=== PATIENT | female | born 1965 | race Caucasian/White ===

== ENCOUNTER 2019-03-06 20:51 | Emergency (ER) | payer MEDICARE ==
[~2019-03-06] VITALS: Ht 160 cm; Wt 61.2 kg
[~2019-03-06 20:51] MED LIST: ALPR1TAB2 PO; CYCL1TAB18 PO; LEV100T PO; QUET50TA PO; VENL75CA3 PO; ZOLP10TA6 PO
[2019-03-06 23:09] LABS: Urine Bacteria NONE SEEN /hpf (None Seen); Urine Blood Negative /uL (Negative); Urine Mucus FEW (None Seen); Urine Specific Gravity 1.026 (1.001-1.035); Urine WBC 3 /hpf (0 - 5)
[2019-03-06 23:11] LABS: Basophils # (auto) 0 uL; Basophils % (auto) 0.1 % (0.0-2.0); Eosinophils # (auto) 0.1 uL; Eosinophils % (auto) 0.6 % (0.0-7.0); Hematocrit 46.8 % (36.0-46.0); Lymphocytes # (auto) 0.3 uL; Lymphocytes % (auto) 2.9 % (10.0-50.0); Mean Corpuscular Hemoglobin 31.2 pg (28.0-32.0); Mean Corpuscular Hgb Conc. 34.2 g/dL (32.0-36.0); Mean Corpuscular Volume 91.2 fL (80.0-100.0); Monocytes # (auto) 0.4 uL; Monocytes % (auto) 4.1 % (0.0-12.0); Neutrophils # (auto) 8.4 uL; Neutrophils % (auto) 92.3 % (37.0-80.0); Platelet Count (auto) 251 10^3/uL (140-450); Red Blood Cells 5.14 10^6/uL (4.0-5.20); Red Cell Distribution Width 13.5 % (11.8-14.3); White Blood Cell 9.1 10^3/uL (4.4-10.8)
[2019-03-06] MEDS ORDERED: MORPHINE SULFATE 4 MG/ML SYR/VIAL IV ONE (23:15)
[2019-03-06] MEDS ORDERED: ONDANSETRON HCL 4 MG/2 ML VIAL IV ONE (23:15)
[2019-03-06 23:17] LABS: Potassium 4.4 mmol/L (3.5-5.1)
[2019-03-06 23:21] LABS: Albumin 4.3 g/dL (3.4-5.0); BUN/Creatinine Ratio 22.8; Calcium 9.5 mg/dL (8.5-10.1)
[2019-03-06 23:27] LABS: Bilirubin, Total 0.3 mg/dL (0.2-1.0); Total Protein 7.8 g/dL (6.4-8.2)
[2019-03-07] MEDS ORDERED: SODIUM CHLORIDE 0.9% 1,000 ML IV ONE
[2019-03-07] MEDS ORDERED: ACETAMINOPHEN 325 MG TAB PO ONE (00:30)
[2019-03-07 02:00] VITALS: BP 120/72
[2019-03-07] MEDS ORDERED: ALPRAZolam 0.5 MG TAB PO ONE (02:45)
== END 2019-03-07 03:29 | disposition home or self-care (01) ==
LOC: ER 20:55
DX: N20.0 Calculus of kidney (principal); R11.2 Nausea with vomiting, unspecified; K21.9 Gastro-esophageal reflux disease without esophagitis; Z87.442 Personal history of urinary calculi; Z88.2 Allergy status to sulfonamides; Z79.899 Other long term (current) drug therapy
CPT/HCPCS: 36415; 74176; 80053; 81001; 83690; 85025; 96361; 96374; 96375

== ENCOUNTER 2023-07-18 21:10 | Emergency (ER) | payer MEDICARE ==
[~2023-07-18] VITALS: Ht 160 cm; Wt 60.9 kg
[~2023-07-18 21:10] MED LIST changes: +CYCL-839 PO; -CYCL1TAB18 PO
[2023-07-18 22:26] LABS: Basophils # (auto) 0.1 10 ^3/uL (0-0.2); Basophils % (auto) 1.2 % (0.0-2.0); Eosinophils # (auto) 0.2 10 ^3/uL (0-0.8); Eosinophils % (auto) 3.1 % (0.0-7.0); Hematocrit 41.3 % (36.0-46.0); Hemoglobin 13.8 g/dL (12.2-16.2); Lymphocytes # (auto) 1.2 10 ^3/uL (0.4-5.4); Mean Corpuscular Hemoglobin 31.1 pg (28.0-32.0); Mean Corpuscular Hgb Conc. 33.4 g/dL (32.0-36.0); Mean Corpuscular Volume 93.1 fL (80.0-100.0); Monocytes # (auto) 0.7 10 ^3/uL (0-1.3); Monocytes % (auto) 14.5 % (0.0-12.0); Neutrophils # (auto) 2.9 10 ^3/uL (1.6-8.6); Neutrophils % (auto) 57.2 % (37.0-80.0); Red Blood Cells 4.44 10^6/uL (4.0-5.20); Red Cell Distribution Width 13.5 % (11.8-14.3)
[2023-07-18 22:35] LABS: Chloride 108 mmol/L (98-107); Potassium 4.2 mmol/L (3.5-5.1); Sodium 140 mmol/L (136-145)
[2023-07-18 22:36] LABS: Anion Gap 4 (5-15); Carbon Dioxide 28 mmol/L (20-30)
[2023-07-18 22:37] LABS: Calcium 10.3 mg/dL (8.7-10.4)
[2023-07-18 22:41] LABS: BUN/Creatinine Ratio 19.2 (10.0-20.0); Blood Urea Nitrogen 19 mg/dL (9-23); Glucose 93 mg/dL (74-106)
[2023-07-18 22:42] LABS: Lipase 40 U/L (12-53)
[2023-07-18] MEDS ORDERED: METO-281 PO (23:35)
[2023-07-19 00:25] VITALS: BP 144/56; PULSE 58; RESP 17; O2SAT 99
[2023-07-19] MEDS: METOCLOPRAMIDE HCL 5MG/ml INJ 2ml VIAL IM ONE (00:31)
== END 2023-07-19 00:34 | disposition home or self-care (01) ==
LOC: ER 21:10
DX: R10.13 Epigastric pain (principal); R11.2 Nausea with vomiting, unspecified; Z98.51 Tubal ligation status; K21.9 Gastro-esophageal reflux disease without esophagitis; Z87.442 Personal history of urinary calculi; Z88.2 Allergy status to sulfonamides
CPT/HCPCS: 36415; 80048; 83690; 85025; 96372; 99283; J2765

== ENCOUNTER 2023-10-08 12:48 | Emergency (ER) | payer MEDICARE ==
[~2023-10-08] VITALS: Ht 160 cm; Wt 61.3 kg
[~2023-10-08 12:48] MED LIST changes: +METO-281 PO
[2023-10-08] MEDS: KETOROLAC TROMETH 60MG/2ML VIAL IM ONE (14:55)
[2023-10-08] MEDS: ONDANSETRON ODT 4 MG TAB PO ONE (14:55)
[2023-10-08 15:00] VITALS: BP 139/84; PULSE 69; RESP 18; TEMP 98.1; O2SAT 98
[2023-10-08] MEDS ORDERED: ZOFR4T PO (15:41)
[2023-10-08] MEDS ORDERED: SUMA50TA2 PO (15:41)
== END 2023-10-08 16:07 | disposition home or self-care (01) ==
LOC: ER 12:48
DX: G43.909 Migraine, unspecified, not intractable, without status migrainosus (principal); F41.9 Anxiety disorder, unspecified; K21.9 Gastro-esophageal reflux disease without esophagitis; E07.9 Disorder of thyroid, unspecified; Z87.442 Personal history of urinary calculi; Z98.51 Tubal ligation status
CPT/HCPCS: 70450; 96372; 99285; J1885; Q0162

== ENCOUNTER 2024-01-27 14:39 | Inpatient (IN) | payer MEDICARE ==
[~2024-01-27] VITALS: Ht 160 cm; Wt 66.0 kg
[~2024-01-27 14:39] MED LIST changes: -LEV100T PO; +LEVO-849 PO; +SUMA50TA2 PO; +ZOFR4T PO
[2024-01-27 15:00] LABS: Basophils # (auto) 0 10 ^3/uL (0-0.2); Basophils % (auto) 0.9 % (0.0-2.0); Eosinophils # (auto) 0 10 ^3/uL (0-0.8); Eosinophils % (auto) 0.5 % (0.0-7.0); Hematocrit 44.1 % (36.0-46.0); Hemoglobin 15.4 g/dL (12.2-16.2); Lymphocytes % (auto) 17.7 % (10.0-50.0); Mean Corpuscular Hemoglobin 32.5 pg (28.0-32.0); Mean Corpuscular Hgb Conc. 34.8 g/dL (32.0-36.0); Mean Corpuscular Volume 93.4 fL (80.0-100.0); Monocytes # (auto) 0.6 10 ^3/uL (0-1.3); Monocytes % (auto) 10.5 % (0.0-12.0); Neutrophils # (auto) 3.8 10 ^3/uL (1.6-8.6); Neutrophils % (auto) 70.4 % (37.0-80.0); Nucleated Red Blood Cells % 0.1 %; Platelet Count (auto) 309 10^3/uL (140-450); Red Blood Cells 4.72 10^6/uL (4.0-5.20); Red Cell Distribution Width 12.8 % (11.8-14.3); White Blood Cell 5.4 10^3/uL (4.4-10.8)
--- NOTE | 2024-01-27 15:02 | ED.PDOC ---
HPI Comments 58Y F with PMHx CVA, MS, Anxiety, and Depression presents to ED for chief complaint chest pain x4hrs. Chest pain is left-sided, radiates to the back, and is described as stabbing. Pt states she was driving home when she began to feel unwell and then upon arriving home, felt SOB. Chest pain improves when leaning forward and worsens when standing upright. Allergies include sulfa abx. Chief Complaint: Chest Pain Time Seen by MD: 14:45 Primary Care Provider: FRANCI Reviewed Notes: Medications, Allergies Allergies: Coded Allergies: Sulfa Antibiotics (Verified Allergy, Unknown, HIVES, 02/27/19) Home Meds Active Scripts Ondansetron Odt 4MG Tab (ZOFRAN PO) 4 Mg Tb, 4 MG PO BID, #14 TAB ODT TAB-DISSOLVE IN MOUTH, THEN SWALLOW Prov:DAVID VILLARREAL 10/08/23 Sumatriptan Succinate (Imitrex) 50 Mg Tab, 1 TAB PO BID, #20 TAB Prov:DAVID VILLARREAL 10/08/23 Metoclopramide Hcl (Reglan) 10 Mg Tab, 10 MG PO Q6HP PRN, #30 TAB Prov:JAYNA KINCAID DO 07/18/23 Reported Medications Cyclobenzaprine Hcl (Cyclobenzaprine Hcl) 10 Mg Tab, 10 MG PO Q8HR for 30 Days, MG 02/27/19 Alprazolam (Xanax) 1 Mg Tab, 1 MG PO Q6HR, TAB 02/27/19 Zolpidem Tartrate (Zolpidem Tartrate) 10 Mg Tab, 1 TAB PO QPM, #30 TAB 2 Refills 02/27/19 Venlafaxine Hydrochloride (Effexor Xr) 75 Mg Cap, 1 CAP PO DAILY, #30 CAP 1 Refill 02/27/19 Quetiapine Fumerate (Seroquel) 50 Mg Tab, 50 MG PO BID, TAB 02/27/19 Levothyroxine Sodium (SYNTHROID TABLET) 100 Mcg Tb, 1 TAB PO DAILY@BREAKFAST, #30 TAB 5 Refills 02/27/19 Information Source: Patient Mode of Arrival: Ambulatory Severity: Severe Timing: Hours Duration: Since onset Location: Chest (L) Radiation: Back Quality: Stabbing Onset: At Rest Cardiac Risk Factors: None PE Risk Factors: None History of: None Modifying Factors: Movement, Position, Position Change Associated Signs and Symptoms: SOB, Back Pain Past Medical History PAST MEDICAL HISTORY: Anxiety, CVA, Depression, GERD, Kidney Stones, Thyroid Past Medical History (Other): MS Surgical History: BTL SOUND ENGINEER History: No Pertinent SOUND ENGINEER History Family History Family History: Reviewed,noncontributory to illness, Family hx of heart moisés Social History Smoker: Non-Smoker Alcohol: Denies ETOH Use Drugs: Denies Drug Use Lives In: Home Constitutional: denies: chills, diaphoresis, fatigue, fever, malaise, sweats, weakness, others EENTM: denies: blurred vision, double vision, ear bleeding, ear discharge, ear drainage, ear pain, ear ringing, eye pain, eye redness, hearing loss, mouth pain, mouth swelling, nasal discharge, nose bleeding, nose congestion, nose pain, photophobia, tearing, throat pain, throat swelling, voice changes, others Respiratory: reports: shortness of breath; denies: cough, hemoptysis, orthopnea, SOB at rest, SOB with excertion, stridor, wheezing, others Cardiovascular: reports: chest pain; denies: dizzy spells, diaphoresis, Dyspnea on exertion, edema, irregular heart beat, left arm pain, lightheadedness, palpitations, PND, syncope, others Gastrointestinal: denies: abdomen distended, abdominal pain, blood streaked bowels, constipated, diarrhea, dysphagia, difficulty swallowing, hematemesis, melena, nausea, poor appetite, poor fluid intake, rectal bleeding, rectal pain, vomiting, others Genitourinary: denies: abnormal vagina bleeding, burning, dyspareunia, dysuria, flank pain, frequency, hematuria, incontinence, pain, , vagina discharge, urgency, others Neurological: denies: dizziness, fainting, headache, left sided numbness, left sided weakness, numbness, paresthesia, pre-existing deficit, right sided numb ness, right sided weakness, seizure, speech problems, tingling, tremors, weakness, others Musculoskeletal: denies: back pain, gout, joint pain, joint swelling, muscle pain, muscle stiffness, neck pain, others Integumetry: denies: bruises, change in color, change in hair/nails, dryness, laceration, lesions, lumps, rash, wounds, others Allergic/Immunocompromised: denies: Difficulty Healing, Frequent Infections, Hives, Itching, others Hematologic/Lymphatic: denies: anemia, blood clots, easy bleeding, easy bruising, swollen glands, others Endocrine: denies: excessive hunger, excessive sweating, excessive thirst, excessive urination, flushing, intolerance to cold, intolerance to heat, unexplained weight gain, unexplained weight loss, others Psychiatric: denies: anxiety, bipolar disorder, depression, hopeless, panic disorder, schizophrenia, sleepless, suicidal, others All Other Systems: Reviewed and Negative Physical Exam General Appearance: Moderate Distress, Severe Distress HEENT: Normal ENT Inspection, Pharynx Normal, TMs Normal Neck: Full Range of Motion, Non-Tender, Normal, Normal Inspection Respiratory: Chest Non-Tender, Lungs Clear, No Accessory Muscle Use, No Respiratory Distress, Normal Breath Sounds Cardiovascular: No Edema, No JVD, No Murmur, No Gallop, Normal Peripheral Pulses, Regular Rate/Rhythm Breast Exam: Deferred Gastrointestinal: No Organomegaly, Non Tender, No Pulsatile Mass, Normal Bowel Sounds, Soft Genitalia: Deferred Pelvic: Deferred Rectal: Deferred Extremities: No calf tenderness, Normal capillary refill, Normal inspection, Normal range of motion, Non-tender, No pedal edema Musculoskeletal : Apperance: Normal Neurologic: Alert, school childcare attendant II-XII nml as Tested, No Motor Deficits, Normal Affect, Normal Mood, No Sensory Deficits Cerebellar Function: NOT DONE Reflexes: NOT DONE Skin: Dry, Normal Color, Warm Peripheral Pulses: 3+ Radial (R), 3+ Radial (L) Lymphatic: No Adenopathy Was a procedure done? Was a procedure done?: No CP Differential Dx Differential Diagnosis: A-fib, A-Flutter, Angina, Anxiety / Panic Attack, Atrial Dysrhythmia, Electrolyte Disorder X-Ray, Labs, Meds, VS Vital Signs Date Time Temp Pulse Resp B/P (MAP) Pulse Ox O2 Delivery O2 Flow Rate FiO2 01/27/24 16:34 116/57 01/27/24 15:34 128/70 01/27/24 15:25 71 19 97 Room Air* 0 21 01/27/24 15:24 97.8 79 19 128/70 (89) 97 97.8 01/27/24 14:51 96 01/27/24 14:42 97.8 85 17 133/80 (97) 97 Lab Test 01/27/24 15:51 01/27/24 14:45 Range/Units Troponin I High Sensitivity 4 4 </=34 ng/L White Blood Count 5.4 4.4-10.8 10^3/uL Red Blood Count 4.72 4.0-5.20 10^6/uL Hemoglobin 15.4 12.2-16.2 g/dL Hematocrit 44.1 36.0-46.0 % Mean Corpuscular Volume 93.4 80.0-100.0 fL Mean Corpuscular Hemoglobin 32.5 H 28.0-32.0 pg Mean Corpuscular Hemoglobin Concent 34.8 32.0-36.0 g/dL Red Cell Distribution Width 12.8 11.8-14.3 % Platelet Count 309 140-450 10^3/uL Mean Platelet Volume 8.6 6.9-10.8 fL Neutrophils (%) (Auto) 70.4 37.0-80.0 % Lymphocytes (%) (Auto) 17.7 10.0-50.0 % Monocytes (%) (Auto) 10.5 0.0-12.0 % Eosinophils (%) (Auto) 0.5 0.0-7.0 % Basophils (%) (Auto) 0.9 0.0-2.0 % Neutrophils # (Auto) 3.8 1.6-8.6 10 ^3/uL Lymphocytes # (Auto) 1.0 0.4-5.4 10 ^3/uL Monocytes # (Auto) 0.6 0-1.3 10 ^3/uL Eosinophils # (Auto) 0 0-0.8 10 ^3/uL Basophils # (Auto) 0 0-0.2 10 ^3/uL Nucleated Red Blood Cells 0.1 % Sodium Level 140 136-145 mmol/L Potassium Level 4.2 3.5-5.1 mmol/L Chloride Level 105 98-107 mmol/L Carbon Dioxide Level 27 20-31 mmol/L Anion Gap 8 5-15 Blood Urea Nitrogen 18 9-23 mg/dL Creatinine 1.00 0.550-1.02 mg/dL Glomerular Filtration Rate Calc 64 >90 mL/min BUN/Creatinine Ratio 18.0 10.0-20.0 Serum Glucose 89 74-106 mg/dL Calcium Level 10.6 H 8.7-10.4 mg/dL Total Bilirubin 0.5 0.2-1.0 mg/dL Aspartate Amino Transferase (AST) 21 13-40 U/L Alanine Aminotransferase (ALT) 21 7-40 U/L Alkaline Phosphatase 105 46-116 U/L Total Protein 7.1 5.7-8.2 g/dL Albumin 4.9 H 3.2-4.8 g/dL Current Medications Medications (Trade) Dose Ordered Sig/Sharlene Route Start Time Stop Time Status Last Admin Aspirin 325 mg ONCE ONCE PO 01/27/24 15:30 01/27/24 15:31 DC 01/27/24 15:34 Nitroglycerin (Ntrostat Sublingual) 0.4 mg ONCE ONCE SL 01/27/24 15:30 01/27/24 15:31 DC 01/27/24 15:34 [place] [id number] Ph: [phone] DIAGNOSTIC IMAGING Diagnostic Imaging Report : [id number] Signed PATIENT: ROSANGELA SEYMOUR ACCT: [id number] UNIT: [id number] : 1965 LOC: ER ROOM / BED: / AGE / SEX: 58 / F ADM STATUS: REG ER SERVICE [id number] ORDERING PHYSICIAN: HERNAN RESENDEZ MD PROCEDURE(s): CXRP - CHEST PORTABLE REASON: CHEST PAIN ORDER NUMBER(s): [id number], ACCESSION NUMBER(s): [id number] CHEST RADIOGRAPH Indication:CHEST PAIN Technique: Single frontal view of the chest was obtained Comparison: None FINDINGS: Lines and Tubes: None Lungs: No focal consolidation. Pleura: No effusion. No pneumothorax. Cardiomediastinal contours: Unremarkable Bones: No acute osseous abnormality. IMPRESSION: No acute cardiopulmonary disease. ATED BY: JIMMY VILLAGOMEZ MD DICTATED DATE/TIME: 01/27/241523 SIGNED BY: JIMMY VILLAGOMEZ MD SIGNED DATE/TIME: 01/27/24 152 CC: Patient alert. Complaining of chest pain. EKG reviewed does not show any acute process. Vitals stable. Answering all questions. Was given aspirin. Was given nitro. Continues to have chest pain. Possibly will need echo. Explained to the patient. Continue cardiac monitoring. Time of 1ST Reevaluation: 15:15 Reevaluation 1ST: Unchanged Patient Education/Counseling: Diagnosis, Treatment Family Education/Counseling: No Family Present Departure 1 Departure Time of Disposition: 15:28 Impression: Primary Impression: Chest pain of unknown etiology Disposition: ADMITTED INPATIENT Admit to: Med Surg Condition: Guarded Critical Care Note Critical Care Time?: Yes (45 min-critical care time only) Stability Stability form required: No Heart Score Heart Score: Heart Score Response (Comments) Value History Slightly Suspicious 0 EKG Normal 0 Age 45-64 1 Risk Factors 1 or 2 risk factors 1 Troponin Normal limit 0 Total 2 I personally scribed for HRENAN RESENDEZ MD ([email or web address]) on 01/27/24 at 15:02. Electronically submitted by Joy Bond ([email or web address]). I personally scribed for HERNAN RESENDEZ MD ([email or web address]) on 01/27/24 at 16:47. Electronically submitted by Joy Bond ([email or web address]). HERNAN RESENDEZ MD Jan 27, 2024 15:02
[2024-01-27 15:25] VITALS: PULSE 71; RESP 19; O2SAT 97
--- NOTE | 2024-01-27 15:26 | DVH ---
CHEST RADIOGRAPH Indication:CHEST PAIN Technique: Single frontal view of the chest was obtained Comparison: None FINDINGS: Lines and Tubes: None Lungs: No focal consolidation. Pleura: No effusion. No pneumothorax. Cardiomediastinal contours: Unremarkable Bones: No acute osseous abnormality. IMPRESSION: No acute cardiopulmonary disease.
[2024-01-27] MEDS: NITROGLYCERIN 0.4 MG SL TAB SL ONE ×2 (15:34→17:13)
[2024-01-27] MEDS: ASPirin 325 MG TAB PO ONE (15:34)
[2024-01-27 15:36] LABS: Alanine Aminotransferase 21 U/L (7-40); Albumin 4.9 g/dL (3.2-4.8); Alkaline Phosphatase 105 U/L (46-116); Anion Gap 8 (5-15); Aspartate Aminotransferase 21 U/L (13-40); Bilirubin, Total 0.5 mg/dL (0.2-1.0); Blood Urea Nitrogen 18 mg/dL (9-23); Calcium 10.6 mg/dL (8.7-10.4); Carbon Dioxide 27 mmol/L (20-31); Chloride 105 mmol/L (98-107); Glucose 89 mg/dL (74-106); Potassium 4.2 mmol/L (3.5-5.1); Sodium 140 mmol/L (136-145); Total Protein 7.1 g/dL (5.7-8.2)
[2024-01-27] MEDS: ONDANSETRON HCL 4 MG/2 ML VIAL IV ONE (17:12)
[2024-01-27] MEDS: MORPHINE SULFATE 4 MG/ML SYR/VIAL IV ONE (17:12)
[2024-01-27] MEDS ORDERED: NITROGLYCERIN 0.4 MG SL TAB SL PRN (20:45)
[2024-01-27] MEDS ORDERED: ACETAMINOPHEN 325 MG TAB PO PRN (20:45)
[2024-01-27] MEDS ORDERED: MORPHINE SULFATE INJ 2 MG/ml SYRG IV PRN (20:45)
[2024-01-27] MEDS: SODIUM CHLOR 0.9% PF (SALINE LOCK) 10ML VIAL/SYR IV SCH (22:05)
--- NOTE | 2024-01-27 22:39 | DVHHPRES ---
History of Present Illness Resident Creating Document: RED AUGUSTE RESIDENT History of Present Illness This is a 58-year-old female with past medical history of hypothyroidism, leukopenia, multiple sclerosis on infusion, osteoporosis, peripheral neuropathy, CVA presented to the ED with a chief complaint of chest pain since morning prior to this admission. According to the patient the left-sided chest pain which was sharp ,stabbing pain 12/10 ,radiate to the back aggravated by standing upright and relieved by leaning forward and associated with shortness of breath, dizziness and diaphoresis. The patient also mentioned dry cough and epigastric pain for last 1 week. She was diagnosed with multiple sclerosis in 2010 and she was on infusion once in every 6 months. Initial EKG and troponins are unremarkable. Past Medical History Hypothyroidism, leukopenia, multiple sclerosis on infusion, osteoporosis, jory pheral neuropathy, CVA Past Surgical History Partial hysterectomy with oophorectomy and bilateral breast implant Family History None Smoke: No ALCOHOL: none Drugs: None Past Social History Lives with her boyfriend Review of Systems Constitutional: No: Fever, Chills, Sweats, Weakness, Malaise, Other Eyes: No: Pain, Vision change, Conjunctivae inflammation, Eyelid inflammation, Other, Redness ENT: No: Ear pain, Ear discharge, Nose pain, Nose discharge, Nose congestion, Mouth pain, Mouth swelling, Throat pain, Throat swelling, Other Respiratory: Cough, Dry, Shortness of breath; No: SOB with excertion, Wheezing, Hemoptysis, Pleuritic Pain, Sputum, Wheezing, Other Cardiovascular: Chest Pain; No: Palpitations, Orthopnea, Paroxysmal Noc. Dyspnea, Edema, Lt Headedness, Other Gastrointestinal: No: Nausea, Vomiting, Abdominal Pain, Diarrhea, Constipation, Melena, Hematochezia, Other Genitourinary: No Dysuria, No Frequency, No Incontinence, No Hematuria, No Retention, No Other Musculoskeletal: No: other, neck pain, shoulder pain, arm pain, back pain, hand pain, leg pain, foot pain Skin: No: Rash, Lesions, Jaundice, Bruising, Other Neurological: No: Weakness, Numbness, Incoordination, Change in speech, Confusion, Seizures, Other Allergies: Coded Allergies: Sulfa Antibiotics (Verified Allergy, Unknown, HIVES, 02/27/19) Medications Current Medications Medications Dose Ordered Sig/Sharlene Route Start Time Stop Time Status Last Admin Dose Admin Sodium Chloride 10 ml Q8HR IV 01/27/24 22:00 01/27/24 22:05 10 ML Acetaminophen 325 mg Q4HP PRN PO 01/27/24 20:45 Acetaminophen/ Hydrocodone Bitart 1 tab Q4HP PRN PO 01/27/24 20:45 Ondansetron HCl 4 mg Q4HP PRN IV 01/27/24 20:45 Nitroglycerin 0.4 mg Q5MINP PRN SL 01/27/24 20:45 Morphine Sulfate 2 mg Q30M PRN IV 01/27/24 20:45 Sodium Chloride 1,000 ml @ 75 mls/hr [id number] IV 01/27/24 22:30 Exam Vital Signs Vital Signs Date Time Temp Pulse Resp B/P (MAP) Pulse Ox O2 Delivery O2 Flow Rate FiO2 01/27/24 21:30 64 11 109/65 (80) 98 01/27/24 19:30 Room Air* 0 21 01/27/24 15:24 97.8 97.8 General Appearance: Alert, Oriented X3, Cooperative, mild distress HEENT: Atraumatic, PERRLA, EOMI, Mucous membr. moist/pink Respiratory: Clear to auscultation, Normal air movement Cardiovascular: Regular rate, Normal S1, Normal S2, No murmurs Abdominal: Normal bowel sounds, Soft, No hepatospenomegaly, No masses, Other (Tenderness in the epigastric region) Extremities: No clubbing, No cyanosis, No edema, Normal pulses, No tenderness/swelling Skin: No rashes, No breakdown, No significant lesion Neuro: Normal gait, Normal speech, Strength at 5/5 X4 ext, Normal tone, Sensation intact Psych/Mental Status: Mental status NL, Mood NL Labs/Xrays Labs Test 01/27/24 15:51 01/27/24 14:45 Range/Units Troponin I High Sensitivity 4 </=34 ng/L White Blood Count 5.4 4.4-10.8 10^3/uL Red Blood Count 4.72 4.0-5.20 10^6/uL Hemoglobin 15.4 12.2-16.2 g/dL Hematocrit 44.1 36.0-46.0 % Mean Corpuscular Volume 93.4 80.0-100.0 fL Mean Corpuscular Hemoglobin 32.5 H 28.0-32.0 pg Mean Corpuscular Hemoglobin Concent 34.8 32.0-36.0 g/dL Red Cell Distribution Width 12.8 11.8-14.3 % Platelet Count 309 140-450 10^3/uL Mean Platelet Volume 8.6 6.9-10.8 fL Neutrophils (%) (Auto) 70.4 37.0-80.0 % Lymphocytes (%) (Auto) 17.7 10.0-50.0 % Monocytes (%) (Auto) 10.5 0.0-12.0 % Eosinophils (%) (Auto) 0.5 0.0-7.0 % Basophils (%) (Auto) 0.9 0.0-2.0 % Neutrophils # (Auto) 3.8 1.6-8.6 10 ^3/uL Lymphocytes # (Auto) 1.0 0.4-5.4 10 ^3/uL Monocytes # (Auto) 0.6 0-1.3 10 ^3/uL Eosinophils # (Auto) 0 0-0.8 10 ^3/uL Basophils # (Auto) 0 0-0.2 10 ^3/uL Nucleated Red Blood Cells 0.1 % Sodium Level 140 136-145 mmol/L Potassium Level 4.2 3.5-5.1 mmol/L Chloride Level 105 98-107 mmol/L Carbon Dioxide Level 27 20-31 mmol/L Anion Gap 8 5-15 Blood Urea Nitrogen 18 9-23 mg/dL Creatinine 1.00 0.550-1.02 mg/dL Glomerular Filtration Rate Calc 64 >90 mL/min BUN/Creatinine Ratio 18.0 10.0-20.0 Serum Glucose 89 74-106 mg/dL Calcium Level 10.6 H 8.7-10.4 mg/dL Total Bilirubin 0.5 0.2-1.0 mg/dL Aspartate Amino Transferase (AST) 21 13-40 U/L Alanine Aminotransferase (ALT) 21 7-40 U/L Alkaline Phosphatase 105 46-116 U/L Total Protein 7.1 5.7-8.2 g/dL Albumin 4.9 H 3.2-4.8 g/dL Assessment/Plan Assessment/Plan Assessment and plan: # Chest pain rule out ACS - Initial EKG and troponins are unremarkable - Ordered echo # Hypercalcemia likely due to dehydration - IV normal saline at 75 mL/hour # Chronic hypothyroidism - Levothyroxine 100 mcg po daily # History of anxiety/depression - Continue home meds # History of MS with frequent flare-up and chronic pain - Continue home meds # DVT prophylaxis - Lovenox 40 mg sc daily. Goal of care discussed with the patient for more than 23 minutes full code Plan of treatment discussed with Dr. Sewell Plan discussed with: Patient, Other My Orders Orders - RED AUGUSTE RESIDENT Procedure Category Date Status Time Admit ADMIT 01/27/24 Transmitted 20:37 Allergies LEONEL 01/27/24 In Process 20:37 Code Status CODE 01/27/24 Transmitted 20:37 Sodium Chloride Lock PHA 01/27/24 In Process (Saline Lock Ns) 22:00 Oxygen Per Hour RT 01/27/24 Transmitted 20:37 Acetaminophen Tablet PHA 01/27/24 In Process (Tylenol Tablet) 20:45 Hydrocodone-Acet PHA 01/27/24 In Process 5/325mg Tab ([place] 20:45 Ondansetron Hcl PHA 01/27/24 In Process (Zofran) 20:45 Complete Blood Count LAB 01/28/24 Verified 04:00 Comprehensive LAB 01/28/24 Verified Metabolic Panel 04:00 Echo 2d Mode Cardiac US 01/27/24 Logged DOP 20:37 Nitroglycerin PHA 01/27/24 In Process Sublingual (Ntrostat 20:45 Morphine Sulfate PHA 01/27/24 In Process Injection 20:45 Oxygen By Nasal RT 01/27/24 Transmitted Cannula 20:37 Stat Ekg For Chest LEONEL 01/27/24 In Process Pain 20:37 Notify Of Changes [facility] 01/27/24 In Process From Base 20:37 Traffic Signal Technician For [facility] 01/27/24 In Process 24 Hours 20:37 Emergency Dysrhythmia LEONEL 01/27/24 In Process Protocol 20:37 Rhythm Strips Once LEONEL 01/27/24 In Process Every Shift 20:37 Sodium Chloride 0.9% PHA 01/27/24 In Process 22:30 Hemoglobin A1c LAB 01/27/24 Logged 22:25 Thyroid Stimulating LAB 01/27/24 Logged Hormone 22:25 Vitamin B12 LAB 01/27/24 Logged 22:25 Vitamin D, 25-Hydroxy LAB 01/27/24 Logged 22:25 B-Type Natriuretic LAB 11/1/24 Logged Peptide 22:25 Date of Service: Jan 27, 2024 Billing Provider: CHASE SEWELL MD Common Visit Codes: [id number] INP/OBS CARE (HIGH) RED AUGUSTE RESIDENT Jan 27, 2024 22:39 CHASE SEWELL MD Jan 31, 2024 09:25
[2024-01-27] MEDS: SODIUM CHLORIDE 0.9% 1,000 ML IV SCH (22:46)
[2024-01-27] MEDS: HYDROcodone-ACET 5/325MG TAB PO PRN (23:34)
[2024-01-27 23:53] VITALS: BP 91/55; PULSE 66; RESP 16; TEMP 97.7; O2SAT 97
[2024-01-28 00:48] VITALS: PULSE 68
[2024-01-28] MEDS: HYDROcodone-ACET 10/325MG TAB PO PRN (03:28)
[2024-01-28 05:00] VITALS: BP 96/56; PULSE 54; RESP 18; O2SAT 96
[2024-01-28] MEDS: LEVOTHYROXINE SODIUM 100 MCG TAB PO SCH (05:50)
[2024-01-28] MEDS: CYCLOBENZAPRINE HCL 10 MG TAB PO SCH (05:50)
[2024-01-28 06:10] LABS: Basophils # (auto) 0 10 ^3/uL (0-0.2); Basophils % (auto) 0.9 % (0.0-2.0); Eosinophils # (auto) 0.2 10 ^3/uL (0-0.8); Eosinophils % (auto) 4.2 % (0.0-7.0); Hematocrit 38.1 % (36.0-46.0); Hemoglobin 13.1 g/dL (12.2-16.2); Lymphocytes # (auto) 0.9 10 ^3/uL (0.4-5.4); Lymphocytes % (auto) 23.3 % (10.0-50.0); Mean Corpuscular Hemoglobin 32.1 pg (28.0-32.0); Mean Corpuscular Hgb Conc. 34.4 g/dL (32.0-36.0); Mean Corpuscular Volume 93.3 fL (80.0-100.0); Monocytes # (auto) 0.6 10 ^3/uL (0-1.3); Monocytes % (auto) 15.5 % (0.0-12.0); Neutrophils # (auto) 2.2 10 ^3/uL (1.6-8.6); Neutrophils % (auto) 56.1 % (37.0-80.0); Nucleated Red Blood Cells % 0.2 %; Platelet Count (auto) 244 10^3/uL (140-450); Red Blood Cells 4.09 10^6/uL (4.0-5.20); Red Cell Distribution Width 12.7 % (11.8-14.3); White Blood Cell 3.9 10^3/uL (4.4-10.8)
[2024-01-28 06:33] LABS: Alanine Aminotransferase 13 U/L (7-40); Albumin 3.8 g/dL (3.2-4.8); Alkaline Phosphatase 80 U/L (46-116); Anion Gap 7 (5-15); Aspartate Aminotransferase 16 U/L (13-40); BUN/Creatinine Ratio 19.4 (10.0-20.0); Blood Urea Nitrogen 19 mg/dL (9-23); Calcium 8.8 mg/dL (8.7-10.4); Carbon Dioxide 24 mmol/L (20-31); Chloride 109 mmol/L (98-107); Glucose 87 mg/dL (74-106); Sodium 140 mmol/L (136-145)
[2024-01-28 06:34] LABS: Bilirubin, Total 0.4 mg/dL (0.2-1.0); Total Protein 5.4 g/dL (5.7-8.2)
[2024-01-28 06:45] LABS: Urine Bacteria FEW /hpf (None Seen); Urine Blood Negative /uL (Negative); Urine Clarity Clear (Clear); Urine Color Light-Yellow (Yellow); Urine Mucus FEW (None Seen); Urine Protein, UAD TRACE (Negative); Urine Specific Gravity 1.029 (1.001-1.035); Urine Urobilinogen Normal (Negative); Urine WBC 1 /hpf (0 - 5); Urine pH 5.5 (5.0-9.0)
[2024-01-28 08:30] VITALS: BP 99/52; PULSE 79; RESP 18; TEMP 98.3; O2SAT 98
[2024-01-28] MEDS: VENLAFAXINE HCL 37.5mg XR cap PO SCH (09:53)
[2024-01-28] MEDS: SUMAtriptan SUCCINATE 25 MG TAB PO SCH (09:54)
[2024-01-28] MEDS: QUEtiapine FUMARATE 25 MG TAB PO SCH (09:54)
[2024-01-28] MEDS: ENOXAPARIN SOD 40 MG/0.4 ML SYRINGE SC SCH (09:55)
[2024-01-28] MEDS: ONDANSETRON HCL 4 MG/2 ML VIAL IV PRN (10:03)
[2024-01-28 12:22] VITALS: BP 119/59; TEMP 36.8
[2024-01-28 12:36] VITALS: BP 95/50; PULSE 55; RESP 16; TEMP 98.4; O2SAT 93
--- NOTE | 2024-01-28 13:30 | DVHSR ---
APPROVED REPORT EXAM: Two-dimensional and M-mode echocardiogram with Doppler and color Doppler. Blood Pressure: 96/56 mmHg INDICATION Chest Pain RISK FACTORS Height: 63, Weight: 145 DIMENSIONS LVDd3.8 (3.8-5.7cm)LA (2D)3.5 (1.9-4.0cm)Aortic Root3.4 (2.0-3.7cm) LVDs2.5 (2.5-4.0cm)LA (MM) (1.9-4.0cm)Aortic Cusp Exc1.2 (1.5-2.0cm) EF (%) 65.0 (55-70%)Rt. Atrium3.5 (1.9-4.0cm)Asc. Aorta cm IVSd0.9 (0.7-1.1cm)RV (D) (1.8-2.4cm) PWd0.9 (0.7-1.1cm) Mitral Valve MitralMitral Stenosis E wave1.11m/sMV Mean GR.mmHg A wave0.68m/sMV Peak GR.mmHg E/A ratio1.62D MVAcm2 DECEL [id number] 1/2 [id number] IVRTmsDop MVA3.14cm2 Aortic Valve Aortic ValveAortic Stenosis V11.36m/Josefina Mean GR.7mmHg V21.72m/Josefina Peak GR.12mmHg LVOT Diameter1.6 (1.8-2.4cm)Doppler AVA1.59cm2 Pulmonic Valve V20.93m/s Tricuspid Valve TR Velocity2.53m/s [id number] Other Information Technically limited study due to patient has breast implants. Conclusion Normal left ventricular size and dimension. Normal left ventricular systolic function estimated ejec tion fraction 55%. There is a grade 1 diastolic dysfunction. Normal right ventricular size and dimension. Normal right ventricular systolic function. Normal biatrial size and dimension. Normal aortic valve structure and function. Normal mitral valve structure and function. Normal tricuspid valve structure and function. The pulmonary valve is grossly normal. No pericardial effusion.
--- NOTE | 2024-01-28 14:04 | DVHDSRES ---
Discharge Summary Date of Admission Resident Creating Document: RED AUGUSTE RESIDENT Jan 27, 2024 at 20:37 Date of Discharge: Jan 28, 2024 Admitting Diagnosis Chest pain and back pain Labs/Diagnostic Data: Laboratory Results Test 01/28/24 06:30 01/28/24 05:54 01/27/24 15:51 Urine Color Light-yellow (Yellow) Urine Clarity Clear (Clear) Urine pH 5.5 (5.0-9.0) Urine Specific [place] 1.029 (1.001-1.035) Urine Protein Trace (Negative) Urine Ketones Trace (Negative) Urine Blood Negative /uL (Negative) Urine Nitrite Negative (Negative) Urine Bilirubin Negative (Negative) Urine Urobilinogen Normal mg/dL (Negative) Urine Leukocyte Esterase Negative /uL (Negative) Urine RBC 1 /hpf (0 - 4) Urine WBC 1 /hpf (0 - 5) Urine Squamous Epithelial Cells Few /hpf (<5) Urine Bacteria Few /hpf (None Seen) Urine Mucus Few (None Seen) Urine Glucose Normal mg/dL (Normal) White Blood Count 3.9 10^3/uL (4.4-10.8) Red Blood Count 4.09 10^6/uL (4.0-5.20) Hemoglobin 13.1 g/dL (12.2-16.2) Hematocrit 38.1 % (36.0-46.0) Mean Corpuscular Volume 93.3 fL (80.0-100.0) Mean Corpuscular Hemoglobin 32.1 pg (28.0-32.0) Mean Corpuscular Hemoglobin Concent 34.4 g/dL (32.0-36.0) Red Cell Distribution Width 12.7 % (11.8-14.3) Platelet Count 244 10^3/uL (140-450) Mean Platelet Volume 8.6 fL (6.9-10.8) Neutrophils (%) (Auto) 56.1 % (37.0-80.0) Lymphocytes (%) (Auto) 23.3 % (10.0-50.0) Monocytes (%) (Auto) 15.5 % (0.0-12.0) Eosinophils (%) (Auto) 4.2 % (0.0-7.0) Basophils (%) (Auto) 0.9 % (0.0-2.0) Neutrophils # (Auto) 2.2 10 ^3/uL (1.6-8.6) Lymphocytes # (Auto) 0.9 10 ^3/uL (0.4-5.4) Monocytes # (Auto) 0.6 10 ^3/uL (0-1.3) Eosinophils # (Auto) 0.2 10 ^3/uL (0-0.8) Basophils # (Auto) 0 10 ^3/uL (0-0.2) Nucleated Red Blood Cells 0.2 % Sodium Level 140 mmol/L (136-145) Potassium Level 4.0 mmol/L (3.5-5.1) Chloride Level 109 mmol/L (98-107) Carbon Dioxide Level 24 mmol/L (20-31) Anion Gap 7 (5-15) Blood Urea Nitrogen 19 mg/dL (9-23) Creatinine 0.98 mg/dL (0.550-1.02) Glomerular Filtration Rate Calc 66 mL/min (>90) BUN/Creatinine Ratio 19.4 (10.0-20.0) Serum Glucose 87 mg/dL (74-106) Hemoglobin A1c 5.1 % A1C (<5.7) Calcium Level 8.8 mg/dL (8.7-10.4) Total Bilirubin 0.4 mg/dL (0.2-1.0) Aspartate Amino Transferase (AST) 16 U/L (13-40) Alanine Aminotransferase (ALT) 13 U/L (7-40) Alkaline Phosphatase 80 U/L (46-116) B-Type Natriuretic Peptide 35.16 pg/mL (0-100) Total Protein 5.4 g/dL (5.7-8.2) Albumin 3.8 g/dL (3.2-4.8) Thyroid Stimulating Hormone (TSH) 0.05 uIU/mL (0.55-4.78) Troponin I High Sensitivity 4 ng/L (</=34) Other Laboratory Tests 01/28/24 05:54 Brief Hx & Hospital Course: This is a 58-year-old female with past medical history of hypothyroidism, leukopenia, multiple sclerosis on infusion, osteoporosis, peripheral neuropathy, CVA presented to the ED with a chief complaint of chest pain since morning prior to this admission. According to the patient the left-sided chest pain which was sharp ,stabbing pain 03/06 ,radiate to the back aggravated by standing upright and relieved by leaning forward and associated with shortness of breath, dizziness and diaphoresis. The patient also mentioned dry cough and epigastric pain for last 1 week. Patient also endorsed pain 10/10, knife-like, stabbing in nature, increased stranding, decreased with leaning forward. She was diagnosed with multiple sclerosis in 2010 and she was on infusion once in every 6 months. Initial EKG and troponins are unremarkable. Echo 2D revealed LVEF . Lab workup was negative for troponin I, EKG sinus rhythm, WBC 5.4 3.9> 3.9, indications 0.05. Calcium 10.6 likely from dehydration. Patient reports doing well today pain on subsided. Patient's thyroxine level was decreased to 125 mcg p.o. daily through out the week from of 125 mcg on a week day and 175 mcg on the weekend. Patient was advised to resume home medications. Patient was discharged home in hemodynamically stable condition. Patient was advised to follow up with the PCP and neurologist in 1 week. Patient is also advised to follow up with her PCP regarding dose adjustment and follow up with TSH level for hypothyroidism. Past Medical History Hypothyroidism, leukopenia, multiple sclerosis on infusion, osteoporosis, peripheral neuropathy, CVA Past Surgical History Partial hysterectomy with oophorectomy and bilateral breast implant Family Histor None Smoke: No ALCOHOL: none Drugs: None Past Social History Lives with her boyfriend Cardiovascular- deny acute chest pain or shortness of breath or cough or palpitation Respiratory- denies cough or short of breath or wheezing Gastrointestinal- denies any rectal bleeding, nausea or vomiting Musculoskeletal-denies acute joint swelling or tenderness or redness Neurological- denies acute dysarthria, dysphagia, change in vision Psychiatry- denies depression or SI or HI Skin- denies acute rash or purpura General examination- HEENT- PEERLA, no acute nasal discharge Cardiovascular- S1-S2 audible, rate and rhythm regular, no murmur Respiratory- CTAB, no wheeze or rhonchi Gastrointestinal-nontender, bowel sound+. Nondistended Musculoskeletal-no acute joint swelling or tenderness or redness# Lower extremity- Neurological- cranial nerves intact, no acute dysarthria or dysphagia Psychiatry- denies depression or SI or HI Skin- no acute rash or purpura Operations or Procedures PATIENT: ROSANGELA SEYMOUR ACCT: [id number] UNIT: [id number] : 1965 LOC: [facility] ROOM / BED: [facility]9 / B AGE / SEX: 58 / F ADM STATUS: ADM IN SERVICE 36 ORDERING PHYSICIAN: RED AUGUSTE RESIDENT PROCEDURE(s): ECIDC - ECHO 2D MODE CARDIAC DOP REASON: Chest pain ORDER NUMBER(s): [id number], ACCESSION NUMBER(s): [id number] APPROVED REPORT EXAM: Two-dimensional and M-mode echocardiogram with Doppler and color Doppler. Blood Pressure: 96/56 mmHg INDICATION Chest Pain RISK FACTORS Height: 63, Weight: 145 DIMENSIONS LVDd 3.8 (3.8-5.7cm) LA (2D) 3.5 (1.9-4.0cm) Aortic Root 3.4 (2.0- 3.7cm) LVDs 2.5 (2.5-4.0cm) LA (MM) (1.9-4.0cm) Aortic Cusp Exc 1.2 (1.5- 2.0cm) EF (%) 65.0 (55-70%) Rt. Atrium 3.5 (1.9-4.0cm) Asc. Aorta cm IVSd 0.9 (0.7-1.1cm) RV (D) (1.8-2.4cm) PWd 0.9 (0.7-1.1cm) Mitral Valve Mitral Mitral Stenosis E wave 1.11m/s MV Mean GR. mmHg A wave 0.68m/s MV Peak GR. mmHg E/A ratio 1.6 2D MVA cm2 DECEL Time 200ms PRESS 1/2 Time 70ms IVRT ms Dop MVA 3.14cm2 Aortic Valve Aortic Valve Aortic Stenosis V1 1.36m/s AO Mean GR. 7mmHg V2 1.72m/s AO Peak GR. 12mmHg LVOT Diameter 1.6 (1.8-2.4cm) Doppler TOSHIA 1.59cm2 Pulmonic Valve V2 0.93m/s Tricuspid Valve TR Velocity 2.53m/s RVSP 31mmHg Other Information Technically limited study due to patient has breast implants. Conclusion Normal left ventricular size and dimension. Normal left ventricular systolic function estimated ejection fraction 55%. There is a grade 1 diastolic dysfunction. Normal right ventricular size and dimension. Normal right ventricular systolic function. Normal biatrial size and dimension. Normal aortic valve structure and function. Normal mitral valve structure and function. Normal tricuspid valve structure and function. The pulmonary valve is grossly normal. No pericardial effusion. SIGNED BY: LOUIS UNDERWOOD MD SIGNED DATE/TIME: 01/28/24 1330 CC: Signed PATIENT: ROSANGELA SEYMOUR ACCT: [id number] UNIT: [id number] : 1965 LOC: ER ROOM / BED: / AGE / SEX: 58 / F ADM STATUS: REG ER SERVICE 1456 ORDERING PHYSICIAN: HERNAN RESENDEZ MD PROCEDURE(s): CXRP - CHEST PORTABLE REASON: CHEST PAIN ORDER NUMBER(s): [id number], ACCESSION NUMBER(s): [id number] CHEST RADIOGRAPH Indication:CHEST PAIN Technique: Single frontal view of the chest was obtained Comparison: None FINDINGS: Lines and Tubes: None Lungs: No focal consolidation. Pleura: No effusion. No pneumothorax. Cardiomediastinal contours: Unremarkable Bones: No acute osseous abnormality. IMPRESSION: No acute cardiopulmonary disease. ATED BY: JIMMY VILLAGOMEZ MD DICTATED DATE/TIME: 01/27/24 1524 SIGNED BY: JIMMY VILLAGOMEZ MD SIGNED DATE/TIME: 01/27/24 1524 CC: Condition at Discharge: Stable Final Diagnosis/Problems List No specific back pain and chest pain History of multiple sclerosis Hypothyroidism Peripheral neuropathy History of CVD History of leukopenia Discharge Disposition: Home Discharge Instruct/Medications Diet: Regular Activity: No Restrictions, As Tolerated Follow Up/Referral: Please follow up with the PCP in 1 week Medications: Please resume Home medications Discharge Statement: "Patient was advised to return to the ER or call 911 if any headaches, dizziness, shortness of breath, chest pain, abdominal pain, bleeding, fevers, or worsening of medical condition. Patient was counseled about treatment plan, medications, possible side effects, patientverbalized understanding. All questions were answered to the best of my ability. This discharge took greater then 30 minutes in planning, reviewing documentation, counseling the patient, and discussing with other team members." ASSESSMENT ASSESSMENT Assessment No specific back pain and chest pain History of multiple sclerosis Hypothyroidism Peripheral neuropathy History of CVD Date of Service: Jan 28, 2024 Billing Provider: MEMO SANCHEZ MD Common Visit Codes: 09846-UKY/OBS DISCH DAY >30min EDISON EL RESIDENT Jan 28, 2024 14:04 MEMO SANCHEZ MD Jan 28, 2024 20:50
[2024-01-28] MEDS ORDERED: ZOLPIDEM TARTRATE 5 MG TAB PO SCH (22:00)
--- NOTE | 2024-01-30 15:12 | ECG ---
[facility] Test Date: 2024-01-27 Test Time: 14:51:18 Pat Name: ROSANGELA SEYMOUR Department: ER Room: 0289 B Gender: F Life Sciences Instructor: ANUPAMA : 1965 Requested By: HERNAN RESENDEZ Order Number: [id number] Reading MD: Amos Cleveland Measurements Intervals [place] Rate: 96 P: 27 CT: 158 QRS: 50 QRSD: 71 T: 72 QT: 343 QTc: 434 Interpretive Statements Sinus rhythm ST changes in the inferior leads are nonspecific Electronically Signed On 02-02-2024 10:08:43 PST by Amos Cleveland Please click the below link to view image of tracing.
--- NOTE | 2024-01-30 15:12 | ECG ---
[facility] Test Date: 2024-01-27 Test Time: 14:49:05 Pat Name: ROSANGELA SEYMOUR Department: ER Room: 0289 B Gender: F Special Services Supervisor: ANUPAMA : 1965 Requested By: HERNAN RESENDEZ Order Number: [id number] Reading MD: Amos Cleveland Measurements Intervals [place] Rate: 93 P: 75 OR: 165 QRS: 52 QRSD: 119 T: 77 QT: 346 QTc: 431 Interpretive Statements Sinus rhythm Nonspecific intraventricular conduction delay Consider anterior infarct Minimal ST depressionelevation, Inferior ST segment changes are nonspecific Artifact in lead(s) I,II,aVR,aVL and baseline wander in lead(s) V4 Electronically Signed On 02-02-2024 10:07:49 PST by Amos Cleveland Please click the below link to view image of tracing.
== END 2024-01-28 15:32 | disposition home or self-care (01) | DRG 206 ==
LOC: ER 14:39 → TELE 20:37 → TELE-WESTW 23:39 → WEST WING 01-28 02:45
PROVIDERS: ADMIT Internal Medicine Geriatric Medicine; ATTEND Internal Medicine Geriatric Medicine
DX: M94.0 Chondrocostal junction syndrome [Tietze] (principal); F41.9 Anxiety disorder, unspecified; F32.A Depression, unspecified; K21.9 Gastro-esophageal reflux disease without esophagitis; E03.9 Hypothyroidism, unspecified; G35 Multiple sclerosis; G62.9 Polyneuropathy, unspecified; M81.0 Age-related osteoporosis without current pathological fracture; E83.52 Hypercalcemia; E86.0 Dehydration; Z88.2 Allergy status to sulfonamides; Z86.73 Personal history of transient ischemic attack (TIA), and cerebral infarction without residual deficits; Z87.442 Personal history of urinary calculi; Z90.710 Acquired absence of both cervix and uterus; Z79.899 Other long term (current) drug therapy
CPT/HCPCS: 36415; 71045; 80053; 81001; 82306; 82607; 83036; 83880; 84443; 84484; 85025; 93005; 93306; 99291; G0378; J2405